=== PATIENT | male | born 1955 | race Caucasian/White ===

== ENCOUNTER 2020-09-24 15:13 | Emergency (ER) | payer OTHER ==
[~2020-09-24] VITALS: Ht 172.7 cm; Wt 104.3 kg
[2020-09-24 15:13] VITALS: BP_SYST 137
[2020-09-24 15:54] LABS: BASOPHILS # (AUTO) 0.1 K/uL (0.0-0.2); BASOPHILS % (AUTO) 0.7 % (0.0-2.0); EOSINOPHILS # (AUTO) 0.2 K/uL (0.0-0.4); HEMATOCRIT 37.6 % (36-54); LYMPHOCYTES # (AUTO) 2.7 K/uL (1.0-5.5); LYMPHOCYTES % (AUTO) 29.3 % (20.5-51.5); MEAN CORPUSCULAR HEMOGLOBIN 32 pg (27-31); MEAN CORPUSCULAR HGB CONC 35 % (32-36); MEAN CORPUSCULAR VOLUME 91 fL (79.0-98.0); MONOCYTES # (AUTO) 0.7 K/uL (0.0-1.0); MONOCYTES % (AUTO) 7.7 % (1.7-9.3); NEUTROPHILS # (AUTO) 5.6 K/uL (1.8-7.7); NEUTROPHILS % (AUTO) 60.3 % (40.0-70.0); PLATELET COUNT (AUTO) 287 K/uL (130-430); RED BLOOD CELL COUNT(AUTO) 4.12 MIL/uL (4.2-6.2); RED CELL DISTRIBUTION WIDTH 12.3 % (9.0-15.0); WHITE BLOOD COUNT (AUTO) 9.3 K/uL (4.8-10.8)
[2020-09-24 16:08] LABS: CALCIUM 8.9 mg/dL (8.4-11.0); CREATININE 1.02 mg/dL (0.55-1.30); POTASSIUM 3.9 mmol/L (3.5-5.1)
[2020-09-24 16:13] LABS: PROTHROMBIN TIME 10.6 SECS (9.5-12.5)
[2020-09-24 16:23] LABS: ALBUMIN 3.7 g/dL (3.4-4.8); FREE T4 (FREE THYROXINE) 1.5 ng/dl (0.8-1.5); THYROID STIMULATING HORMONE 0.04 uIu/mL (0.36-3.74); TOTAL BILIRUBIN 1.5 mg/dL (0.0-1.0)
[2020-09-24 17:32] VITALS: BP_SYST 137
== END 2020-09-24 17:32 | disposition home or self-care (01) ==
LOC: SED 15:13
DX: R00.2 Palpitations (principal); R07.89 Other chest pain; E78.00 Pure hypercholesterolemia, unspecified
CPT/HCPCS: 36415; 71045; 80053; 84439; 84443; 84484; 85025; 85610-TC; 85730-TC; 93005; 99283